=== PATIENT | male | born 1955 | race Caucasian/White ===

== ENCOUNTER 2019-04-10 15:11 | Emergency (ER) | payer OTHER ==
[2019-04-10 15:39] VITALS: BP 134/82
--- NOTE | 2019-04-10 15:45 | UC ---
Knee Pain HPI - HPI Summary HPI Summary: the patient is a 64-year-old male that has had some right knee discomfort for the past month or so. He states his knee has been feeling tight. Today he was walking down the hallway and turned to go into her room and his right knee buckled. Since then he has had knee pain with weightbearing. This is the first time his knee has buckled. He denies any prior history of knee issues. The patient is on a blood thinner due to atrial fibrillation. - History of Current Complaint Chief Complaint: UCLowerExtremity Stated Complaint: RT KNEE INJURY Time Seen by Provider: 04/10/19 15:19 Hx Obtained From: Patient Onset/Duration: Gradual Onset, Lasting Weeks, Worse Since - today Severity Initially: Mild Severity Currently: Moderate Pain Intensity: 6 - with wt bearing Pain Scale Used: 0-10 Numeric Character: Sharp Aggravating Factor(s): Weight Bearing Alleviating Factor(s): Rest, Cold Associated Signs And Symptoms: Positive: Negative Able to Bear Weight: Yes Legs: 1 - pain laterally - Allergies/Home Medications Allergies/Adverse Reactions: Allergies Allergy/AdvReac Type Severity Reaction Status Date / Time No Known Allergies Allergy Verified 04/10/19 15:32 Home Medications: Home Medications Acetaminophen [Tylenol Extra Strength] 1,000 mg PO BID PRN 04/10/19 [History Confirmed 04/10/19] Apixaban* [Eliquis*] 5 mg PO BID 04/10/19 [History Confirmed 04/10/19] Carvedilol [Coreg] 12.5 mg PO BID 04/10/19 [History Confirmed 04/10/19] Ramipril [Altace] 5 mg PO DAILY 04/10/19 [History Confirmed 04/10/19] PMH/Surg Hx/FS Hx/Imm Hx Previously Healthy: Yes Cardiovascular History: Hypertension, Atrial Fibrillation - Family History Known Family History: Positive: Cardiac Disease, Hypertension - Social History Alcohol Use: Weekly Substance Use Type: None Smoking Status (MU): Never Smoked Tobacco Review of Systems All Other Systems Reviewed And Are Negative: Yes Constitutional: Positive: Negative Skin: Positive: Negative Eyes: Positive: Negative ENT: Positive: Negative Respiratory: Positive: Negative Cardiovascular: Positive: Negative Gastrointestinal: Positive: Negative Genitourinary: Positive: Negative Motor: Positive: Negative Neurovascular: Positive: Negative Musculoskeletal: Positive: Arthralgia - Right knee Neurological: Positive: Negative Psychological: Positive: Negative Physical Exam Triage Information Reviewed: Yes Appearance: Well-Appearing, No Pain Distress, Well-Nourished Vital Signs: Initial Vital Signs Temp 98.3 F 04/10/19 15:34 Pulse 74 04/10/19 15:34 Resp 18 04/10/19 15:34 BP 134/82 04/10/19 15:34 Pulse Ox 95 04/10/19 15:34 Vital Signs Reviewed: Yes Eyes: Positive: Conjunctiva Clear ENT: Positive: Hearing grossly normal. Negative: Nasal congestion, Nasal drainage, Tonsillar swelling, Tonsillar exudate, Muffled voice, Hoarse voice Neck: Positive: Supple, Nontender, No Lymphadenopathy Respiratory: Positive: Lungs clear, Normal breath sounds, No respiratory distress Cardiovascular: Positive: No Murmur. Negative: RRR, Tachycardia, Bradycardia Musculoskeletal: Positive: ROM Intact, No Edema, Other: - right knee -stable, lateral joint tenderness, no effusion Neurological: Positive: Alert Psychological Exam: Normal Skin Exam: Normal Diagnostics - Radiology No standard instances Radiology Interpretation Completed By: Radiologist Summary of Radiographic Findings: right knee: #. Negative for joint effusion, fracture, or articular malalignment. #. Minimal osteophytosis. Negative for significant joint space narrowing. #. Peripheral vascular calcifications. #. Unremarkable soft tissue contours. Knee Pain Course/Dx - Differential Dx/Diagnosis Provider Diagnosis: Sprain of collateral ligament of right knee Discharge ED - Sign-Out/Discharge Documenting (check all that apply): Patient Departure All imaging exams completed and their final reports reviewed: Yes - Discharge Plan Condition: Stable Disposition: HOME Patient Education Materials: Knee Sprain (ED), Knee Immobilizer (ED) Referrals: Jovan Carbajal MD [Primary Care Provider] - 1 Week Additional Instructions: tylenol for pain ice twice daily - Billing Disposition and Condition Condition: STABLE Disposition: Home
== END 2019-04-10 16:28 | disposition home or self-care (01) ==
LOC: UCEAST 15:11
DX: S83.401A Sprain of unspecified collateral ligament of right knee, initial encounter (principal); X50.9XXA Other and unspecified overexertion or strenuous movements or postures, initial encounter; Y92.019 Unspecified place in single-family (private) house as the place of occurrence of the external cause; I10 Essential (primary) hypertension; I48.91 Unspecified atrial fibrillation
CPT/HCPCS: 99213; G0463